=== PATIENT | female | born 1945 | race Caucasian/White ===

== ENCOUNTER 2020-10-12 18:57 | Emergency (ER) | payer MEDICARE, OTHER ==
[~2020-10-12 18:57] MED LIST: ASPIRIN CHEWABL81 MG PO; ATORVASTATIN CA20 MG PO; CLOPIDOGREL75 MG PO; COZAAR 50MG TAB50 MG PO; DIFLUCAN150 MG PO; FERROUS SULFAT325 M2 PO; FUROSEMIDE20 MG PO; IMDUR ER TAB 3030 MG PO; LOPRESSOR 25 MG25 MG PO; OMNICEF 300 MG300 MG PO; PLAVIX75 MG PO; PYRIDIUM200 MG PO
[2020-10-12 22:08] LABS: HEMOGLOBIN 10.1 gm/dl (12.3-15.3); RED BLOOD COUNT 4.03 M/UL (4.00-5.10); WHITE BLOOD COUNT 3.7 K/UL (4.5-11.0)
[2020-10-12 22:33] LABS: BUN/CREATININE RATIO 12 (0-10)
== END 2020-10-13 01:39 | disposition home or self-care (01) ==
LOC: ER1 18:57
PROVIDERS: Family Medicine
DX: D72.819 Decreased white blood cell count, unspecified (principal); I25.2 Old myocardial infarction; I11.9 Hypertensive heart disease without heart failure; M06.9 Rheumatoid arthritis, unspecified; Z95.1 Presence of aortocoronary bypass graft
CPT/HCPCS: 80053; 81001; 82550; 82553; 83874; 84484; 85025; 85610; 87086; 93005; 99284